=== PATIENT | female | born 1990 | race Caucasian/White ===

== ENCOUNTER 2023-07-28 12:38 | Emergency (ER) | payer MEDICAID ==
[~2023-07-28] VITALS: Ht 177.8 cm; Wt 90.0 kg
[2023-07-28 12:40] VITALS: TEMP 98.4; O2SAT 98
[2023-07-28 14:26] LABS: BASOPHILS % 0.6 % (0.0-2.0); EOSINOPHILS % 0.5 % (0.0-5.0); HEMATOCRIT. 29.2 % (36.0-48.0); HEMOGLOBIN. 9.9 g/dL (12.0-16.0); LYMPHOCYTES % 11.7 % (20.0-50.0); MEAN CORPUSCULAR HEMOGLOBIN 27.4 pg (28.0-32.0); MEAN CORPUSCULAR HGB CONC 33.8 g/dL (31.0-37.0); MEAN CORPUSCULAR VOLUME 81.3 fL (81.0-99.0); MEAN PLATELET VOLUME 9.6 fl (7.4-10.4); MONOCYTES % 7.2 % (2.0-8.0); PLATELET 301 x1000/uL (130-400); RED CELL DISTRIBUTION WIDTH 15.9 % (11.6-14.6); WHITE BLOOD COUNT 6.5 x1000/uL (4.5-11.0)
[2023-07-28 14:33] LABS: CHLORIDE 107 mEq/L (98-107); POTASSIUM 3.1 mEq/L (3.5-5.1); SODIUM 141 mEq/L (136-145)
[2023-07-28 14:34] LABS: CALCIUM 8.2 mg/dL (8.7-10.4); CARBON DIOXIDE 27 mEq/L (21-32)
[2023-07-28 14:37] LABS: HCG SCREEN NEGATIVE
[2023-07-28 14:39] LABS: CREATININE 0.7 mg/dL (0.6-1.0); GLUCOSE 118 mg/dL (70-105)
[2023-07-28 14:42] LABS: ETHANOL BLOOD < 10 mg/dL (<10); UREA NITROGEN BLOOD < 5 mg/dL (9-23)
[2023-07-28] MEDS: POTASSIUM CHLORIDE 20MEQ/PACKET PO NR (15:37)
[2023-07-28] MEDS: LEVETIRACETAM 1000MG PREMIX 100 ML IV SCH (15:37)
[2023-07-28] MEDS: CALCIUM GLUCONATE 1GM PREMIX 50 ML IV SCH (16:52)
[2023-07-28] MEDS ORDERED: ASCO500C6 MT (17:11)
[2023-07-28] MEDS ORDERED: ACET-2708 MT (17:13)
[2023-07-28 17:23] VITALS: BP 132/85; PULSE 66; RESP 18
[2023-07-28] MEDS ORDERED: ONDANSETRON 4MG ODT PO ONE (18:00)
== END 2023-07-28 18:00 | disposition home or self-care (01) ==
LOC: ER 12:38
DX: R56.9 Unspecified convulsions (principal)
CPT/HCPCS: 80048; 80320; 84703; 85025; 36415; 96374; 99283; J1953; J0610; Z7610 ×2; G0480

== ENCOUNTER 2023-08-21 11:10 | Emergency (ER) | payer MEDICAID ==
[~2023-08-21] VITALS: Ht 167.6 cm; Wt 90.0 kg
[~2023-08-21 11:10] MED LIST: ACET-2708 MT
[2023-08-21 11:12] VITALS: BP 131/84; PULSE 88; RESP 18; TEMP 98.1; O2SAT 98
[2023-08-21] MEDS: ACETAMINOPHEN 325MG TABLET PO ONE (12:15)
[2023-08-21] MEDS: IBUPROFEN 400MG TABLET PO ONE (12:15)
== END 2023-08-21 12:54 | disposition home or self-care (01) ==
LOC: ER 11:10
DX: S09.90XA Unspecified injury of head, initial encounter (principal); Z86.59 Personal history of other mental and behavioral disorders; W22.8XXA Striking against or struck by other objects, initial encounter; Y93.89 Activity, other specified; Y92.89 Other specified places as the place of occurrence of the external cause; Y99.8 Other external cause status
CPT/HCPCS: 99284